=== PATIENT | female | born 1975 | race African-American/Black ===

== ENCOUNTER 2019-08-06 16:02 | Inpatient (IN) ==
[2019-08-06 16:57] LABS: BASO# 0.01 X1000 (0.0-0.2); BASO% 0.2 % (0.0-0.8); EOS# 0.09 X1000 (0.0-0.7); EOS% 1.7 % (0.0-10.0); HEMATOCRIT 39.5 % (37.0-47.0); HEMOGLOBIN 12.7 g/dL (12.0-16.0); IMM GRAN# 0.01 X1000 (0.0-0.04); IMM GRAN% 0.2 % (0.0-0.5); LYMPH# 1.78 X1000 (1.2-3.4); MCH 27.6 PG (27-31); MCHC 32.2 g/dL (33-37); MCV 85.9 FL (81-99); MONO# 0.39 X1000 (0.11-0.59); MONO% 7.2 % (1.7-9.3); MPV 11.5 FL (7.4-10.4); NEUT# 3.11 X1000 (1.4-6.5); NEUT% 57.7 % (42.2-75.2); PLT 287 X1000 (130-400); WBC 5.39 X1000 (4.8-10.8)
--- NOTE | 2019-08-06 17:10 | EKG Report ---
Test Performed on : 08/06/2019 4:49:53 PM Test Reason : SOB Blood Pressure : / mmHG Vent. Rate : 105 BPM Atrial Rate : 105 BPM P-R Int : 144 ms QRS Dur : 086 ms QT Int : 368 ms P-R-T Axes : 053 -19 047 degrees QTc Int : 486 ms Sinus tachycardia. Moderate voltage criteria for LVH, may be normal variant Borderline ECG No previous ECGs available Unconfirmed Result
[2019-08-06 17:12] LABS: ACETONE SERUM NEGATIVE (NEGATIVE)
[2019-08-06 17:17] LABS: AGAP 14; ALBUMIN 3.8 g/dL (3.5-5.0); ALKALINE PHOSPHATASE 174 U/L (32-104); BUN 8 mg/dL (8-22); CALCIUM 9.2 mg/dL (8.8-10.2); CHLORIDE 98 mmol/L (98-107); COSMO 283; CREATININE 0.6 mg/dL (0.5-0.9); ESTIMATED GFR > 60; GLUCOSE 358 mg/dL (70-104); GOT 40 U/L (10-30); GPT 41 U/L (10-36); POTASSIUM 4.3 mmol/L (3.5-5.1); SODIUM 135 mmol/L (136-145); TCO2 24 mmol/L (25-35); TOTAL PROTEIN 7.6 g/dL (6.3-8.3)
--- NOTE | 2019-08-06 17:32 | Diag Imaging Result Doc PS360 ---
EXAM: CHEST-2 VIEWS HISTORY: sob TECHNIQUE: Two views COMPARISON: None. FINDINGS: The lungs are well expanded. The heart is mildly enlarged. The vessels are not distended. There are increased interstitial markings in the lung bases. No pleural effusions. IMPRESSION: 1.Mild cardiomegaly 2.Basilar infiltrates Electronically signed by Jhonny Camp 08/06/2019 5:30 PM
[2019-08-06] MEDS ORDERED: NITROGLYCERIN TOP ONE ×2 (17:40→17:51)
[2019-08-06] MEDS ORDERED: CATAPRES PO ONE (17:51)
--- NOTE | 2019-08-06 18:50 | Diag Imaging Result Doc PS360 ---
EXAM: CT ANGIOGRM PULMONARY ARTERIES HISTORY: chest pain TECHNIQUE: CT chest with intravenous contrast. Pulmonary arterial protocol with MIP images. COMPARISON: None. FINDINGS: Normal opacification of the pulmonary arteries and their major branches. The heart is enlarged. Mild vascular distention. There are tiny pleural effusions. Mildly prominent mediastinal and hilar nodes. No consolidation. No bronchiectasis. IMPRESSION: 1.No pulmonary emboli 2.Cardiomegaly with tiny pleural effusions and mild pulmonary edema This exam was performed using automated exposure control, adjustment of mA or kV according to patient size, and/or use of iterative reconstruction technique. Electronically signed by Jhonny Camp 08/06/2019 6:48 PM
[2019-08-06] MEDS ORDERED: LASIX IV ONE (19:06)
--- NOTE | 2019-08-06 19:12 | PROVIDER DOCUMENTATION ---
This chart was entered by Maik Lott Scribe, acting as scribe for Scotty Martínez MD. HPI-General Adult - General Source: patient - History of Present Illness -Gen Adult Nature of Presenting Problems: 43 yof presents to the ed w/ SOB. pt states SOB while walking to work. pt states hx of HNT and DM w/ no meds in 2 months EMS states FSBA of 338. Location of Pain/Injury: reports: none Pain Radiation: reports: no radiation Quality of Pain: reports: none Severity: reports: mild Onset/Duration: reports: just prior to arrival Timing: reports: still present Context/Activities at Onset: reports: none Modifying Factors: improves with: nothing Associated Symptoms: reports: shortness of breath. denies: arm pain, back/neck pain, chest pain Similar Symptoms Previously?: No Recently seen or treated by another doctor?: No <Scotty Martínez - Last Filed: 08/06/19 19:12> <Marek Hoffman - Last Filed: 08/06/19 20:33> - General Chief Complaint: Shortness of Breath Stated Complaint: SOB Time Seen by Provider: 08/06/19 16:51 Allergies/Adverse Reactions: Patient Allergies Allergy/AdvReac Type Severity Reaction Status Date / Time No Known Allergies Allergy Verified 08/06/19 16:08 Home Medications: Home Medication List Medication Instructions Recorded Confirmed Last Taken Type NK [No Home Medications] 08/06/19 08/06/19 Unknown History Review of Systems - Adult - REVIEW OF SYSTEMS - ADULT Constitutional: reports: no symptoms reported Eyes: reports: no symptoms reported Ears, Nose, Mouth & Throat: reports: no symptoms reported Cardiovascular: reports: no symptoms reported Respiratory: reports: shortness of breath. denies: cough, wheezing Gastrointestinal: reports: no symptoms reported Genitourinary: reports: no symptoms reported Musculoskeletal: reports: no symptoms reported Integumentary: reports: no symptoms reported Neurological: reports: no symptoms reported Psychiatric: reports: no symptoms reported Endocrine: reports: no symptoms reported Hematologic/Lymphatic: reports: no symptoms reported Allergic/Immunologic: reports: no symptoms reported All Other Systems: Reviewed and Negative <Scotty Martínez - Last Filed: 08/06/19 19:12> Past History - Adult - PAST MEDICAL HISTORY-ADULT Review of Records: reports: Old Records Reviewed, Nursing Assessment Review, Medications Reviewed, Social history reviewed & non-contributory. Major Childhood Illnesses: reports: denies history Cardiovascular: reports: HTN Respiratory: reports: denies history Gastrointestinal: reports: denies history Obstetrical/Gynecological: reports: denies history Genitourinary: reports: denies history Musculoskeletal: reports: denies history Neurological: reports: denies history Psychiatric: reports: denies history Endocrine/Immune: reports: Diabetes Other Conditions: reports: denies history - PRIOR SURGERIES/PROCEDURES Surgical/Procedure History: reports: reviewed, not pertinent - IMMUNIZATION STATUS Childhood Immunizations: See Nurse Assessment Flu Vaccine: See Nurse Assessment - FAMILY HISTORY Family History: reviewed, not pertinent <Scotty Martínez - Last Filed: 08/06/19 19:12> Physical Exam-General - PHYSICAL EXAM-ADULT Initial Vital Signs Reviewed: Yes - CONSTITUTIONAL General Appearance: appears well, alert - CARDIOVASCULAR Cardiovascular: tachycardia (119) - CHEST (BREASTS) Chest/Breast: deferred - GENITOURINARY Female Genitalia/Pelvic Exam: deferred Rectal Exam: deferred Hemoccult Exam: deferred <Scotty Martínez - Last Filed: 08/06/19 19:12> Progress - PLAN OF CARE/RESULTS Progress/Plan/Lab Results: Vital Signs - 8 hr 08/06/19 16:05 Temperature 98.2 F Pulse Rate 119 H Respiratory Rate 20 Blood Pressure 216/141 O2 Sat by Pulse Oximetry 100 Orders Category Date Time Status CHEST-2 VIEWS [RAD] Stat Exams 08/06/19 16:35 Ordered ACETONE SERUM [CHEM] Stat Lab 08/06/19 16:48 Ordered CBC WITH ELECTRONIC DIFF [HEME] Stat Lab 08/06/19 16:48 Ordered CK PROFILE [SP CHEM] Stat Lab 08/06/19 16:35 Ordered COMPREHENSIVE METABOLIC PANEL [CHEM] Stat Lab 08/06/19 16:48 Ordered D-DIMER [COAG] Stat Lab 08/06/19 16:35 Ordered TROPONIN T HIGH SENSITIVITY Stat Lab 08/06/19 16:48 Ordered EKG [EKG] Stat Ther 08/06/19 16:35 Ordered Result Diagrams: 08/06/19 16:45 08/06/19 16:45 - EKG 1 Time of EKG reading by physician:: 16:49 EKG Read and Signed by:: Scotty Martínez EKG Interpretation (*Must complete 3 of following elements*): Normal Rate: 105 Rhythm: sinus tachycardia [place]: normal QRS: normal NV Interval: normal ST Wave: normal Comments: moderate voltage criteria for LVH, may be normal variant - XRAY 1 XRAY Study: Chest Impression: See EMR Report ( EXAM: CHEST-2 VIEWS HISTORY: sob TECHNIQUE: Two views COMPARISON: None. FINDINGS: The lungs are well expanded. The heart is mildly enlarged. The vessels are not distended. There are increased interstitial markings in the lung bases. No pleural effusions. IMPRESSION: 1.Mild cardiomegaly 2.Basilar infiltrates Electronically signed by Jhonny Camp 08/06/2019 5:30 PM 08/06/19 1730 Interpreting Physician: Jhonny Camp MD Dictated Date/Time: 08/06/19 1729 cc: Penny Lujan; None,PCP) - CHANGE OF SHIFT REPORT (ED Provider) 1 Report Given and Care Transferred to:: Dr. Marek Hoffman Items Pending: Other (reassess BP and if better then discharge, BP 228/150, given clonidine,Lasix, nitropaste) <Scotty Martínez - Last Filed: 08/06/19 19:12> - PLAN OF CARE/RESULTS Progress/Plan/Lab Results: Vital Signs - 8 hr 08/06/19 16:05 Temperature 98.2 F Pulse Rate 119 H Respiratory Rate 20 Blood Pressure 216/141 O2 Sat by Pulse Oximetry 100 Laboratory Results - last 24 hr 08/06/19 08/06/19 08/06/19 16:45 16:45 16:45 WBC RBC Hgb Hct MCV MCH MCHC RDW Std Deviation Plt Count MPV Immature Gran % (Auto) Neut % (Auto) Lymph % (Auto) [place] % (Auto) Eos % (Auto) Baso % (Auto) Immature Gran # (Auto) Neut # (Auto) Lymph # (Auto) [place] # (Auto) Eos # (Auto) Baso # (Auto) D-Dimer, Quantitative 2.06 H Sodium 135 L Potassium 4.3 Chloride 98 Carbon Dioxide 24 L Anion Gap 14 BUN 8 Creatinine 0.6 Estimated GFR/1.73 m2 > 60 BUN/Creatinine Ratio 13 Glucose 358 H POC Glucose Calculated Osmolality 283 Calcium 9.2 Total Bilirubin 0.30 AST 40 H ALT 41 H Alkaline Phosphatase 174 H Creatine Kinase 42 Troponin T High Sens Total Protein 7.6 Albumin 3.8 Globulin 4.0 Albumin/Globulin Ratio 1.0 Acetone Level NEGATIVE 08/06/19 08/06/19 08/06/19 16:45 16:45 16:45 WBC 5.39 RBC 4.60 Hgb 12.7 Hct 39.5 MCV 85.9 MCH 27.6 MCHC 32.2 L RDW Std Deviation 12.0 Plt Count 287 MPV 11.5 H Immature Gran % (Auto) 0.2 Neut % (Auto) 57.7 Lymph % (Auto) 33.0 Hanson % (Auto) 7.2 Eos % (Auto) 1.7 Baso % (Auto) 0.2 Immature Gran # (Auto) 0.01 Neut # (Auto) 3.11 Lymph # (Auto) 1.78 Hanson # (Auto) 0.39 Eos # (Auto) 0.09 Baso # (Auto) 0.01 D-Dimer, Quantitative Sodium Potassium Chloride Carbon Dioxide Anion Gap BUN Creatinine Estimated GFR/1.73 m2 BUN/Creatinine Ratio Glucose POC Glucose 292 H Calculated Osmolality Calcium Total Bilirubin AST ALT Alkaline Phosphatase Creatine Kinase Troponin T High Sens < 6 Total Protein Albumin Globulin Albumin/Globulin Ratio Acetone Level Orders Category Date Time Status CHEST-2 VIEWS [RAD] Stat Exams 08/06/19 16:[address] ANGIOGRM PULMONARY ARTERIES [CT] Stat Exams 08/06/19 17:53 Completed ACETONE SERUM [CHEM] Stat Lab 08/06/19 16:45 Completed CBC WITH ELECTRONIC DIFF [HEME] Stat Lab 08/06/19 16:45 Completed CK PROFILE [SP CHEM] Stat Lab 08/06/19 16:45 Completed COMPREHENSIVE METABOLIC PANEL [CHEM] Stat Lab 08/06/19 16:45 Completed D-DIMER [COAG] Stat Lab 08/06/19 16:45 Completed TROPONIN T HIGH SENSITIVITY Stat Lab 08/06/19 16:45 Completed Clonidine [Catapres] Med 08/06/19 17:51 Discontinued 0.2 mg PO NOW ONE Furosemide [Lasix] Med 08/06/19 19:06 Discontinued 40 mg IV NOW ONE Nitroglycerin Med 08/06/19 17:40 Discontinued 1 inch TOP NOW ONE Nitroglycerin Med 08/06/19 17:51 Discontinued 1 inch TOP NOW ONE EKG [EKG] Stat Ther 02/08/20 16:35 Draft Result Diagrams: 08/06/19 16:45 08/06/19 16:45 - REASSESSMENT Reassessment #1 Time Reassessed: 20:15 Status: unchanged Reassessment Comment: informed patient of test results which shows no PE, shows pulmonary edema - CONSULTS/PCP/HOSPITALIST Notification #1 *Consult/PCP/Hospitalist*: Dr. Cisneros Time Discussed: 20:15 Consult Disposition: Admit <Marek Hoffman - Last Filed: 08/06/19 20:33> Departure - Departure Date of Disposition Decision: 08/06/19 Certified Medical Emergency: Emergent - Critical Care Note This patient required my direct & personal management of CC.: No <Scotty Martínez - Last Filed: 08/06/19 19:12> - Departure Time of Disposition Decision: 20:32 Certified Medical Emergency: Emergent - Critical Care Note This patient required my direct & personal management of CC.: No <Marek Hoffman - Last Filed: 08/06/19 20:33> - Departure DIAGNOSIS: Uncontrolled hypertension Pulmonary edema Qualifiers: Chronicity: acute Qualified Code(s): J81.0 - Acute pulmonary edema Disposition: ADMITTED INPATIENT 09 Condition: Stable Referrals and Follow-Ups: None,PCP [Primary Care Provider] - Attestation - Physician/ MICKIE Attestation Patient care was provided by Advanced Practice Provider:: No The physician spent face to face time with patient:: Yes Advanced Practice Provider documentation review:: Supervising physician onsite and consulted in the evaluation and care of this patient. The physician did have a face to face encounter with the patient. <Scotty Martínez - Last Filed: 08/06/19 19:12> This chart was documented by the indicated scribe, (Maik Lott, Viniciusibdestiney) and accurately reflects the services I performed and decisions made by me, Scotty Martínez MD, as attested by the provider's signature.
[2019-08-06] MEDS ORDERED: CATAPRES PO PRN (20:36)
[2019-08-06] MEDS: LASIX IV SCH (20:45)
[2019-08-07] MEDS ORDERED: MOTRIN PO ONE (00:04)
[2019-08-07] MEDS: PRINIVIL PO SCH (09:31)
[2019-08-07] MEDS: GLUCOPHAGE PO SCH ×2 (09:31→18:15)
[2019-08-07] MEDS: LASIX IV SCH ×2 (09:32→21:17)
[2019-08-07] MEDS ORDERED: HUMALOG (PARKWAY) ONE (09:53)
[2019-08-07] MEDS: HUMALOG (PARKWAY) SUBQ SCH ×3 (10:02→21:16)
[2019-08-07 10:53] LABS: BASO# 0.01 X1000 (0.0-0.2); BASO% 0.2 % (0.0-0.8); EOS# 0.13 X1000 (0.0-0.7); HEMATOCRIT 36.5 % (37.0-47.0); HEMOGLOBIN 11.6 g/dL (12.0-16.0); LYMPH# 2.12 X1000 (1.2-3.4); LYMPH% 48.8 % (20.5-51.1); MCH 27.4 PG (27-31); MCHC 31.8 g/dL (33-37); MCV 86.3 FL (81-99); MONO# 0.33 X1000 (0.11-0.59); MONO% 7.6 % (1.7-9.3); MPV 11.8 FL (7.4-10.4); NEUT# 1.75 X1000 (1.4-6.5); NEUT% 40.4 % (42.2-75.2); PLT 275 X1000 (130-400); RBC 4.23 XMIL (4.2-5.4); RDW 11.9 % (11.5-14.5); WBC 4.34 X1000 (4.8-10.8)
[2019-08-07 11:06] LABS: HEMOGLOBIN A1C 9.9 % (4.8-6.0)
--- NOTE | 2019-08-07 11:19 | Vascular Study Report ---
EXAM: Venous U/S Bilateral Legs 08/07/2019 HISTORY: ELEVATED DDIMER, DYSPNEA TECHNIQUE: Compression venous ultrasound of the lower extremities with color Doppler flow COMMENT: There is compressibility of the deep veins of both lower extremities with no evidence of thrombus. There is no evidence of superficial venous thrombosis. There is color Doppler flow with augmentation and some reflux is seen in the right femoral vein. IMPRESSION: No evidence of deep venous thrombosis. 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 Electronically signed by Mayank Chavis 08/07/2019 11:16 AM
[2019-08-07 11:48] LABS: AGAP 14; ALBUMIN 3.5 g/dL (3.5-5.0); ALKALINE PHOSPHATASE 137 U/L (32-104); BUN 14 mg/dL (8-22); CALCIUM 9.2 mg/dL (8.8-10.2); CHLORIDE 98 mmol/L (98-107); COSMO 286; CREATININE 0.7 mg/dL (0.5-0.9); ESTIMATED GFR > 60; GLUCOSE 308 mg/dL (70-104); GOT 18 U/L (10-30); GPT 27 U/L (10-36); MAGNESIUM 1.6 mg/dL (1.5-2.7); POTASSIUM 3.8 mmol/L (3.5-5.1); SODIUM 137 mmol/L (136-145); TCO2 25 mmol/L (25-35); TOTAL PROTEIN 7.3 g/dL (6.3-8.3)
--- NOTE | 2019-08-07 14:20 | HISTORY AND PHYSICAL ---
CHIEF COMPLAINT: Shortness of breath. HISTORY OF PRESENT ILLNESS: This is a 43-year-old female with a history of diabetes and hypertension. She presented to the emergency room after becoming short of breath while walking through the parking lot going to work. She denied any prior episodes of shortness of breath, any fevers, chills, any dizziness, any chest pain or palpitations. The patient states that she has not taken her medications for her blood pressure or diabetes in the last 2 months because "I just ran out of it." She did not attempt to get an appointment with a physician to get prescriptions written. PAST MEDICAL HISTORY: 1. Diabetes mellitus. 2. Hypertension. PAST SURGICAL HISTORY: Denies. ALLERGIES: No known drug allergies. SOCIAL HISTORY: She denies alcohol, tobacco, or illicit drug use.Family history: Positive for hypertension, diabetes in first-degree relatives. REVIEW OF SYSTEMS: Discussed with the patient with pertinent positives stated in the HPI. She denied any syncope, dizziness, any chest pain or palpitations, a productive cough, any fevers or chills, any nasal drainage, any nausea, vomiting, diarrhea, constipation, black or bloody vomitus or stools. Hematuria, dysuria, frequency, urgency. PHYSICAL EXAMINATION: GENERAL: This is a 43-year-old female who is lying on the stretcher in the emergency room in no distress. VITAL SIGNS: Blood pressure is 146/80, heart rate of 73, respirations are 18, temperature is 98.2 degrees with room air saturations 95 to 99 percent. EYES: Pupils equal, round, react to light. EOMs are intact. Sclerae are anicteric. HEENT: Head is normocephalic, atraumatic. Mucous membranes are moist. NECK: Supple with trachea midline. No JVD. CARDIOVASCULAR: Regular rate and rhythm. S1 and S2 appreciated. No murmur. She has no lower extremity edema. Calves are nontender bilateral with peripheral pulses palpable x4 extremities. PULMONARY: Breath sounds are clear with no increased work of breathing noted. Chest rises and falls symmetric with respiration. Chest wall is nontender to palpation. GASTROINTESTINAL: Abdomen is soft, nontender, nondistended with bowel sounds in all 4 quadrants. GENITOURINARY: No CVA or suprapubic tenderness. NEUROLOGIC: She is alert and oriented x3. SKIN: Warm and dry. LABS: WBC is 5.3 with hemoglobin 12.7, hematocrit 39.5, and platelets of 287,000. D-dimer is 2.06. Sodium 135, potassium 4.3, BUN 8, creatinine 0.6 with a glucose of 358, AST 40, ALT 41, alkaline phosphatase 174. Her proBNP is 3600. Acetone is negative. EKG: Sinus tachycardia at a rate of 105. Chest x-ray revealed mild cardiomegaly with basilar infiltrates. No pleural effusions. Pulmonary arteriogram reveals no pulmonary emboli, cardiomegaly with tiny pleural effusions and mild pulmonary edema. ASSESSMENT AND PLAN: 1. Shortness of breath. This is resolved. O2 saturations have been 95 to 100 percent on room air. 2. Elevated D-dimer, CTA pulmonary was negative for pulmonary embolus. We will get a lower extremity Doppler. 3. Diabetes mellitus with noncompliance. The patient cannot remember if she was taking insulin or not. She does not remember what medication she was on. We will start metformin 500 mg [address]., place her on pattern blood glucose with sliding scale insulin. 4. Hypertension. The patient cannot remember what she has been prescribed in the past for hypertension, nor if she took the pill once or twice a day. We will start lisinopril and monitor vital signs. 5. Elevated liver function tests. We will repeat labs and monitor. Abdomen is soft and nontender. She denies any prior history of elevation. 6. Elevated proBNP. She was given Lasix in the emergency room. She did not catch urine for us to get intake and output. We will obtain an echocardiogram and continue with diuresis. 7. Plan was discussed with Dr. Cisneros. Further treatments pending hospital course. Dictated by ILEANA Cerna for Zaki Cisneros MD cc: ILEANA Cerna MD
--- NOTE | 2019-08-07 16:38 | ECHO REPORT ---
ORDER DATE: 08/07/2019 ECHOCARDIOGRAPHIC MEASUREMENTS: 1. Interventricular septum 1.2. 2. Left ventricular posterior wall 1.0. 3. Diastolic diameter 5. 4. Left atrium 4.7. 5. Aorta 3.7. 6. Tricuspid valve was normal. 7. Aortic valve leaflets were trileaflet. 8. Pulmonic valve was normal. 9. Mitral valve was normal. 10. There is trace tricuspid regurgitation. Peak velocity across the tricuspid valve was 2.5 m/sec. 11. Mild mitral regurgitation. 12. Peak velocity across the aortic valve less than 2 m/sec. There is no aortic stenosis or regurgitation. 13. Normal left ventricular cavity size. Estimated ejection fraction of 50% to 55%. 14. Endocardium not well visualized in all views. 15. There is no pericardial effusion or obvious intracardiac mass or thrombus seen. cc: MD Kylah Pang CRNP
--- NOTE | 2019-08-08 00:45 | HISTORY AND PHYSICAL ---
ADDENDUM: Patient presented to the hospital with increased work of breathing, shortness of breath. Does have a history of hypertension and diabetes. Blood pressures were markedly elevated initially at 216/140, currently 140/80. She appears to have pneumonia as well as uncontrolled hypertension. We are going to place her on antibiotics, breathing treatments, oxygen, and follow her blood pressures. Further orders as needed. cc: Zaki Cisneros MD
[2019-08-08] MEDS: HUMALOG (PARKWAY) SUBQ SCH ×2 (06:04→06:27)
[2019-08-08 07:38] VITALS: BP 140/63
[2019-08-08] MEDS: LASIX IV SCH (10:18)
[2019-08-08] MEDS: GLUCOPHAGE PO SCH (10:18)
[2019-08-08] MEDS: PRINIVIL PO SCH (10:18)
--- NOTE | 2019-08-08 20:08 | PROGRESS NOTE ---
DATE: 08/08/2019 SUBJECTIVE: Patient notes that she is feeling a lot better. She has had no further shortness of breath. Breathing is improved. We are going to discharge her home. Discussed with her that her A1c is 9.9 and certainly needs to be improved at home. She will continue to change her diet and we will adjust her medications. Please see full note. cc: Zaki Cisneros MD
--- NOTE | 2019-08-09 09:44 | DISCHARGE SUMMARY ---
ADMISSION DATE: 08/06/2019 DISCHARGE DATE: 08/08/2019 ADMISSION AND DISCHARGE DIAGNOSES: 1. Shortness of breath, which resolved. 2. Elevated D-dimer. CTA of the lungs is negative for PE. The venous ultrasound of the lower extremities negative for DVT, however, did show a venous valvular incompetence in the right femoral vein. 3. Diabetes mellitus type 2 with noncompliance. 4. Hypertension. 5. Elevated liver enzymes. 6. Elevated proBNP. 7. Pneumonia. 8. Uncontrolled hypertension. CONSULTATIONS: None. SURGERIES AND PROCEDURES: None. HOSPITAL COURSE: Ms. Ana Jules is a 43-year-old female presented to the emergency department at [facility] with complaints of shortness of breath on the 06 of August. She was fully admitted on the , was found to have pneumonia, started on antibiotics, respiratory treatments and oxygen as needed. However, her O2 saturations were stable on room air. She is very hypertensive. It was 216/140 when she 1st presented, which eventually resolved once medications were resumed. However, there is a concern that she has some noncompliance with her medication regimen. The D- dimer was elevated. She did not have a PE. An echo was performed. She had normal ejection fraction and she was also negative for DVT in the lower extremities. She stabilized and was able to be discharged home today. DISCHARGE VITAL SIGNS: Temperature 97.8 degrees, heart rate 86, respiratory 20, blood pressure 140/63, O2 saturation 100% on room air. Discharge. DISCHARGE LAB DATA: White blood cells 4000, hemoglobin 11, hematocrit 36, platelet count 275,000. Her D-dimer was 2.06 on admission. Sodium 137, potassium 3.8, BUN 14, creatinine 0.7, glucose 162. Hemoglobin A1c was 9.9, calcium 9.2, magnesium 1.6, bilirubin 0.20, AST 18, ALT 27. She did have a proBNP of 3600. Albumin was 3.5. Micro none. IMAGING: On the chest x-ray, mild cardiomegaly, basilar infiltrate on the . Pulmonary arteriogram, no pulmonary emboli. It showed cardiomegaly with tiny pleural effusions and mild pulmonary edema. On the bilateral lower extremity venous ultrasound negative for DVT, did show venous valvular incompetence in the right femoral vein. Echocardiogram on the , valves normal. Trace TR, mild MR, normal LV size and ejection fraction of 50 to 55 percent. EKG on the 8th, sinus tachycardia, rate 105, QTc was 486. DISCHARGE MEDICATIONS: 1. Metformin 500 mg p.o. twice daily. 2. Lisinopril 20 mg p.o. daily. DISCHARGE ACTIVITY: As tolerated. DISCHARGE DIET: Heart healthy diabetic. DISCHARGE INSTRUCTIONS: If her condition changes, contact physician and/or return to the emergency department. Changes may include, but not limited to shortness of breath, increased fatigue, excessive bleeding, unexplained weight loss or gain, unmanageable pain, signs or symptoms of infection. PHYSICIAN FOLLOWUP: She will need to find a primary and follow up with a primary. DISCHARGE DISPOSITION: Home. Dictated by ILEANA Serra for Zaki Cisneros MD cc: ILEANA Serra MD
== END 2019-08-08 13:23 | disposition home or self-care (01) | DRG 304 ==
LOC: P.ED 16:02 → P.EDIPHOLD 08-07 00:28 → P.MEDSURG 08-07 11:02
PROVIDERS: ATTEND Family Medicine

== ENCOUNTER 2019-10-04 19:49 | Inpatient (IN) ==
[2019-10-04] MEDS ORDERED: LOPRESSOR IV ONE (20:36)
[2019-10-04 20:49] LABS: BASO# 0.02 X1000 (0.0-0.2); BASO% 0.3 % (0.0-0.8); EOS# 0.01 X1000 (0.0-0.7); EOS% 0.1 % (0.0-10.0); HEMATOCRIT 34.7 % (37.0-47.0); MCH 25.9 PG (27-31); MCHC 31.7 g/dL (33-37); MCV 81.6 FL (81-99); MONO# 0.51 X1000 (0.11-0.59); MONO% 7.6 % (1.7-9.3); MPV 11.6 FL (7.4-10.4); NEUT# 4.73 X1000 (1.4-6.5); PLT 345 X1000 (130-400); RBC 4.25 XMIL (4.2-5.4); RDW 13.5 % (11.5-14.5); WBC 6.67 X1000 (4.8-10.8)
[2019-10-04 20:58] LABS: INR 1.14; PROTIME 14.8 Seconds (11.0-16.0); PTT 26.7 Seconds (22.3-41.8)
--- NOTE | 2019-10-04 21:10 | EKG Report ---
Test Performed on : 10/04/2019 8:22:23 PM Test Reason : tachycardia Blood Pressure : / mmHG Vent. Rate : 146 BPM Atrial Rate : 146 BPM P-R Int : 138 ms QRS Dur : 086 ms QT Int : 306 ms P-R-T Axes : 033 -11 057 degrees QTc Int : 476 ms Sinus tachycardia. with frequent and consecutive premature ventricular complexes. Minimal voltage criteria for LVH, may be normal variant Abnormal ECG When compared with ECG of 06-AUG-2019 16:49, (Unconfirmed) premature ventricular complexes. are now present Unconfirmed Result
[2019-10-04 21:12] LABS: AGAP 16; ALBUMIN 3.3 g/dL (3.5-5.0); ALKALINE PHOSPHATASE 513 U/L (32-104); BUN 10 mg/dL (8-22); CALCIUM 8.8 mg/dL (8.8-10.2); CHLORIDE 93 mmol/L (98-107); CK PROFILE 34 U/L (24-173); COSMO 279; CREATININE 0.7 mg/dL (0.5-0.9); ESTIMATED GFR > 60; GLUCOSE 380 mg/dL (70-104); GOT 29 U/L (10-30); GPT 20 U/L (10-36); POTASSIUM 4.6 mmol/L (3.5-5.1); SODIUM 132 mmol/L (136-145); TCO2 23 mmol/L (25-35); TOTAL PROTEIN 6.6 g/dL (6.3-8.3)
--- NOTE | 2019-10-04 21:35 | Diag Imaging Result Doc PS360 ---
EXAM: CHEST-PORTABLE HISTORY: dyspnea TECHNIQUE: Single view COMPARISON: 08/06/2019 FINDINGS: Poor inspiratory effort. The heart is enlarged. Mild pulmonary edema. Questionable tiny pleural effusions. IMPRESSION: Cardiomegaly with pulmonary edema Electronically signed by Jhonny Camp 10/04/2019 9:32 PM
[2019-10-04] MEDS ORDERED: LASIX IV ONE (22:07)
--- NOTE | 2019-10-04 22:17 | PROVIDER DOCUMENTATION ---
This chart was entered by Tiffanie Alanis Scribe, acting as scribe for Aleisha Vickers CRNP. HPI-General Adult - General Chief Complaint: Shortness of Breath Stated Complaint: sob, nausea/vomiting Time Seen by Provider: 10/04/19 20:04 Source: patient Allergies/Adverse Reactions: Patient Allergies Allergy/AdvReac Type Severity Reaction Status Date / Time No Known Allergies Allergy Verified 10/04/19 20:41 Home Medications: Home Medication List Medication Instructions Recorded Confirmed Last Taken Type Metformin [Glucophage] 500 mg PO BID CC #60 tab 08/08/19 10/04/19 Unknown Rx - History of Present Illness -Gen Adult Nature of Presenting Problems: Pt is a 44 yobf presenting in ED with c/o SOB, body aches in legs and arms, and N/V. Pt reports that she has had worsening SOB for the last week and worsening bilateral leg edema for the last month. Pt says that she has difficulty laying down flat. Pt states that she went to the [facility] Thursday and was given HTN medication by Emmy, which pt says she did not fill. Pt reports that she feels nauseous and vomited 1x today, pt report that vomit was red in color but pt also states that she had just drank red Koolaid. Pt has a hx of HTN, diabetes and renal disease and takes metformin for diabetes. Pt is alert and flushed in appearance. Location of Pain/Injury: reports: lower extremity (bilateral leg), generalized (pt reports that body feels tight) Quality of Pain: reports: aching, tightness Severity: reports: moderate Onset/Duration: reports: gradual, last week (pt states that SOB has been getting worse for last week), other (pt states that pedal edema has been worsening for last month) Timing: reports: still present, constant, getting worse Context/Activities at Onset: reports: light activity. denies: out of country travel Modifying Factors: worse with: lying down, movement Associated Symptoms: reports: muscle aches (generalized), nausea, shortness of b reath, vomiting (1 x today). denies: chest pain, cough, fever/chills Similar Symptoms Previously?: Yes (pt reports symptoms for over 1 week) Recently seen or treated by another doctor?: Yes (Thursday at [facility]) Review of Systems - Adult - REVIEW OF SYSTEMS - ADULT Constitutional: denies: chills, fever Eyes: reports: no symptoms reported Ears, Nose, Mouth & Throat: reports: no symptoms reported Cardiovascular: denies: chest pain, syncope Respiratory: reports: see HPI, shortness of breath. denies: cough Gastrointestinal: reports: see HPI, nausea, vomiting. denies: abdominal pain Genitourinary: reports: no symptoms reported Musculoskeletal: reports: see HPI, muscle aches (generalized) Integumentary: reports: no symptoms reported Neurological: reports: no symptoms reported Psychiatric: reports: no symptoms reported Endocrine: reports: no symptoms reported Hematologic/Lymphatic: reports: no symptoms reported Allergic/Immunologic: reports: no symptoms reported All Other Systems: Reviewed and Negative Past History - Adult - PAST MEDICAL HISTORY-ADULT Review of Records: reports: Old Records Reviewed, Nursing Assessment Review, Medications Reviewed, Social history reviewed & non-contributory. Major Childhood Illnesses: reports: denies history Cardiovascular: reports: HTN Respiratory: reports: denies history Gastrointestinal: reports: denies history Obstetrical/Gynecological: reports: denies history Genitourinary: reports: dialysis, kidney disease Musculoskeletal: reports: denies history Neurological: reports: denies history Psychiatric: reports: denies history Endocrine/Immune: reports: Diabetes Other Conditions: reports: denies history - PRIOR SURGERIES/PROCEDURES Surgical/Procedure History: reports: reviewed, not pertinent - IMMUNIZATION STATUS Childhood Immunizations: See Nurse Assessment Flu Vaccine: See Nurse Assessment - FAMILY HISTORY Family History: reviewed, not pertinent - SOCIAL HISTORY Smoking: quit less than 1 year Living Situation: alone Physical Exam-General - PHYSICAL EXAM-ADULT Initial Vital Signs Reviewed: Yes (HR 129) - CONSTITUTIONAL General Appearance: alert, mild distress, obese - EYES Eyes: PERRL/EOMI, pink conjunctivae - HEAD, EARS, NOSE, MOUTH & THROAT HENMT: normocephalic/atraumatic, moist mucous membranes - NECK Neck: non-tender, full range of motion, supple - RESPIRATORY Respiratory: chest non-tender, rhonchi (bilateral). negative: crackles, wheezing - CARDIOVASCULAR Cardiovascular: normal peripheral pulses, tachycardia - GASTROINTESTINAL (ABDOMEN) Abdominal Exam: non tender, soft - MUSCULOSKELETAL Back Exam: normal inspection, no CVA tenderness, no vertebral tenderness Extremity: normal range of motion, normal gait (Pt moved onto ED bed by herself) , pedal edema (bilateral Lower leg) - SKIN Integumentary: warm/dry, other (flushed) - NEUROLOGIC Neurologic: grossly normal - PSYCHIATRIC Psych/Mental Status: normal thought content, normal thought process, oriented x 3, anxious Progress - PLAN OF CARE/RESULTS Progress/Plan/Lab Results: Vital Signs - 8 hr 10/04/19 19:49 Temperature 99.2 F Pulse Rate 129 H Respiratory Rate 21 Blood Pressure 212/72 O2 Sat by Pulse Oximetry 96 Orders Category Date Time Status NEWS Score 2-4:Order NEWS Lactate Series NOW Care 10/04/19 19:58 Active Nursing- Obtain EKG ONCE Care 10/04/19 20:36 Active CHEST-PORTABLE [RAD] Stat Exams 10/04/19 20:31 Ordered CBC WITH DIFF [HEME] Stat Lab 10/04/19 20:40 Ordered CK PROFILE [SP CHEM] Stat Lab 10/04/19 20:40 Ordered COMPREHENSIVE METABOLIC PANEL [CHEM] Stat Lab 10/04/19 20:40 Ordered D-DIMER [COAG] Stat Lab 10/04/19 20:40 Ordered LACTATE, PLASMA [CHEM] Lab 10/04/19 23:00 Uncollected LACTATE, PLASMA [CHEM] Lab 10/05/19 02:00 Uncollected LACTATE, PLASMA [CHEM] Q3H Lab 10/04/19 20:40 Ordered PRO B-NATRIURETIC PEPTIDE Stat Lab 10/04/19 20:40 Ordered PROTIME WITH INR [COAG] Stat Lab 10/04/19 20:40 Ordered PTT [COAG] Stat Lab 10/04/19 20:40 Ordered TROPONIN T HIGH SENSITIVITY Stat Lab 10/04/19 20:40 Ordered Metoprolol [Lopressor] Med 10/04/19 20:36 Discontinued 5 mg IV NOW ONE EKG [EKG] Stat Ther 10/04/19 20:36 Ordered Result Diagrams: 10/04/19 20:30 10/04/19 20:30 - EKG 1 Time of EKG reading by physician:: 20:24 EKG Read and Signed by:: Olga Shields EKG Interpretation (*Must complete 3 of following elements*): Abnormal Rate: 146 Rhythm: Sinus tachycardia w/frequent & consecutive premature ventricular complexes QRS: LVH (minimal voltage criteria, may be normal variant) - XRAY 1 XRAY Study: Chest Impression: See EMR Report (FINDINGS: Poor inspiratory effort. The heart is enlarged. Mild pulmonary edema. Questionable tiny pleural effusions. IMPRESSION: Cardiomegaly with pulmonary edema Electronically signed by Jhonny Camp 10/04/2019 9:32 PM) - CONSULTS/PCP/HOSPITALIST Notification #1 *Consult/PCP/Hospitalist*: Dr. Sanchez Time Discussed: 22:16 Consult Disposition: Admit Departure - Departure Date of Disposition Decision: 10/04/19 Time of Disposition Decision: 22:16 DIAGNOSIS: Transaminitis, Uncontrolled hypertension CHF exacerbation Qualifiers: Heart failure type: unspecified Qualified Code(s): I50.9 - Heart failure, unspecified Disposition: ADMITTED INPATIENT 09 Certified Medical Emergency: Emergent Condition: Poor - Critical Care Note This patient required my direct & personal management of CC.: Yes Total Time (mins): 30 Critical Care Statement: This patient required my direct personal management to treat or rule out processes, the absence of which, could potentiallly result in sudden, clinically significant life or limb threatening deterioration. Attestation - Physician/ MICKIE Attestation Patient care was provided by Advanced Practice Provider:: Yes Advanced Practice Provider:: Aleisha Vickers Advanced Practice Provider documentation review:: The Mid-level provider documentation, treatment plan and medical decision making was reviewed by the physician who agrees with all treatment and medical decision making by the MLP. The physician spent face to face time with patient:: No Advanced Practice Provider documentation review:: Supervising physician onsite and consulted in the evaluation and care of this patient. The physician did not have a face to face encounter with the patient. This chart was documented by the indicated scribe, (Tiffanie Alanis, Taryn) and accurately reflects the services I performed and decisions made by me, Aleisha Vickers CRNP, as attested by the provider's signature.
[2019-10-05] MEDS: LASIX IV SCH ×3 (00:29→23:16)
[2019-10-05] MEDS: HUMALOG SUBQ SCH ×5 (00:44→21:04)
[2019-10-05] MEDS ORDERED: LASIX IV ONE (06:04)
[2019-10-05] MEDS ORDERED: NICODERM PATCH TD PRN (06:56)
--- NOTE | 2019-10-05 07:15 | HISTORY AND PHYSICAL ---
CHIEF COMPLAINT: Shortness of breath for about 2 weeks. HISTORY OF PRESENT ILLNESS: Ms. Ana Jules is a 44-year-old female, who has a history of congestive heart failure, hypertension, diabetes mellitus, who presents to the hospital because of shortness of breath which has been ongoing for the last 2 weeks and has been progressive. She also has associated orthopnea and also leg swelling. The patient has not been compliant with her diuretics. When she presented to the hospital, her proBNP level was found to be 4842, and a chest x-ray did show cardiomegaly with pulmonary edema. Patient now admitted to the floor for further management. PAST MEDICAL HISTORY: Hypertension, diabetes mellitus, as well as congestive heart failure. SOCIAL HISTORY: Patient has a history of cigarette smoking. She indicates that she has quit smoking about 2 weeks ago. No alcohol or drug use. ALLERGIES: No known drug allergies. PAST SURGICAL HISTORY: She has had section, as well as right carpal tunnel surgery. FAMILY HISTORY: Positive for diabetes mellitus. MEDICATIONS: She takes metformin 500 mg p.o. twice a day. REVIEW OF SYSTEMS: Constitutional: No fever. 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 Eyes: No blurred vision. ENT: No sinus or hearing loss. Cardiovascular: See history of present illness. Respiratory: No cough. GI: She had some vomiting. No abdominal pain. : No dysuria. Dermatology: No skin lesions. Hematology: No bleeding problems. Endocrinology: Has diabetes. No thyroid disease. Psychiatric: She has depression. Allergy/Immunology: No symptoms suggestive of allergic rhinitis. X-RAYS: Chest x-ray shows evidence of cardiomegaly with pulmonary congestion. PHYSICAL EXAMINATION. VITALS.T98.2, RR 20, GA 95, BP -177/89, O2 sat. 99% HEENT. at.nc, anicteric, no oral lesions noted NECK. no lymphadenopathy or thyromegaly. no jvd CVS. s1s2, no gallops , rubs or murmur RESP.clear to auscultation, no rales or rhonchi ABD. soft, nt, no masses felt. EXT. 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 Acute diastolic congestive heart failure. Maintain patient on diuretics. Monitor intake and output, as well as daily weights. 2. Hypertension. Optimize blood pressure control. 3. Diabetes mellitus. Maintain patient on sliding scale insulin. Monitor blood sugar levels. Check hemoglobin A1c level. 4. Elevated D-dimer level. We will obtain CT of the chest. If negative, will obtain Doppler of the lower extremities. 5. Elevated alkaline phosphatase level. Obtain abdominal ultrasound. 6. Tobacco use history. Recommend nicotine patch. 7. Deep vein thrombosis prophylaxis. Lovenox. 8. Gastrointestinal prophylaxis. Proton pump inhibitor. cc: Randy Sanchez MD MTDZak
[2019-10-05] MEDS: PRILOSEC PO SCH (07:16)
[2019-10-05 07:21] LABS: HEMOGLOBIN A1C 9.5 % (4.8-6.0)
--- NOTE | 2019-10-05 07:52 | EKG Report ---
Test Performed on : 10/05/2019 07:18:30 AM Test Reason : afib Blood Pressure : / mmHG Vent. Rate : 107 BPM Atrial Rate : 107 BPM P-R Int : 146 ms QRS Dur : 088 ms QT Int : 360 ms P-R-T Axes : 058 -01 081 degrees QTc Int : 480 ms Sinus tachycardia. with occasional premature ventricular complexes. Nonspecific T wave abnormality Abnormal ECG When compared with ECG of 04-OCT-2019 20:22, (Unconfirmed) Nonspecific T wave abnormality, worse in Lateral leads Confirmed by Will MOLINA, Fernando Beverly ([id number]) on 10/05/2019 9:58:12 AM
--- NOTE | 2019-10-05 08:57 | Diag Imaging Result Doc PS360 ---
EXAM: US ABDOMEN-COMPLETE INDICATION: elevated alk . phosphatase COMPARISON: None. FINDINGS: The gallbladder appears normal with no stones, wall thickening, or pericholecystic fluid. The common bile duct is normal in diameter. Sonographic Norwood's sign was reported to be negative. There is a trace amount of fluid tracking around the liver. The liver is grossly normal in size and echotexture. Portal venous flow is hepatopetal. The visualized portion of the pancreas is unremarkable. The aorta and IVC are grossly unremarkable. The spleen is unremarkable. There is a 1.7 cm simple appearing cyst at the upper pole of the left kidney. The kidneys are grossly unremarkable, otherwise. IMPRESSION: Trace fluid tracking around the liver. Essentially unremarkable abdominal ultrasound, otherwise. Electronically signed by Allan Platt 10/05/2019 8:54 AM
[2019-10-05] MEDS ORDERED: LOVENOX SUBQ SCH (09:00)
--- NOTE | 2019-10-05 09:10 | Diag Imaging Result Doc PS360 ---
EXAM: CT ANGIOGRM PULMONARY ARTERIES INDICATION: elevated d- dimer TECHNIQUE: This exam was performed using automated exposure control, adjustment of mA or kV according to patient size, and/or use of iterative reconstruction technique. Thin section axial images and 3-D MIPS were obtained. COMPARISON: 08/06/2019 FINDINGS: There is no evidence of pulmonary embolism. There is no evidence of aortic dissection or aneurysm. There is stable mild cardiomegaly. There is no evidence of significant mediastinal or hilar lymphadenopathy. There is mild groundglass opacity and interstitial thickening at the lung bases suggesting mild edema. There is mild subsegmental atelectasis at both lung bases, most prominent at the right middle lobe. There is a small right pleural effusion that is essentially stable as compared to the previous study. There is no evidence of pneumothorax. Limited views of the upper abdomen are essentially unremarkable. There is thoracic spondylosis. There is no evidence of acute osseous abnormality. IMPRESSION: 1.Mild pulmonary edema at the lung bases and a small right effusion. 2.Subsegmental atelectasis at both lung bases. 3.Stable mild cardiomegaly. 4.No evidence of pulmonary embolism. Electronically signed by Allan Platt 10/05/2019 9:08 AM
[2019-10-05] MEDS: PRINIVIL PO SCH ×2 (09:36→20:58)
[2019-10-05] MEDS: COREG PO SCH ×2 (09:37→20:58)
--- NOTE | 2019-10-05 13:28 | PROGRESS NOTE ---
DATE: 10/05/2019 SUBJECTIVE: Patient reports feeling okay. Denies any fever or chills. OBJECTIVE: Vital Signs: Temperature 98.5 degrees, heart rate 105, respiratory rate 17, blood pressure 186/84, O2 saturation 97% 2 L nasal cannula. General examination: This is a 44-year- old, female, lying in bed in no acute distress. Cardiovascular exam: S1, S2 heard. No murmurs, gallops, or rubs. Regular rate and rhythm. Respiratory exam: Minimal crackles noted in both pulmonary bases. Patient not using any accessory muscles or having work of breathing. Abdomen: Soft, nontender to palpation. Bowel sounds present. No organomegaly. Extremities: No clubbing, cyanosis, or edema. Peripheral pulses present in both legs. Neurological exam: Patient alert and oriented x3. Moves 4 extremities. LABORATORY DATA: There are no labs from today. ASSESSMENT AND PLAN: 1. Acute diastolic congestive heart failure. We will continue with Lasix 40 mg intravenous every 12 hours. We will continue monitoring ins and outs. 2. Hypertension. Apparently, the patient is not on any blood pressure medication, so the patient has been started on lisinopril 10 mg 1 tablet oral twice daily, and we will add amlodipine 5 mg one tablet oral twice daily as well to her current treatment. 3. Diabetes mellitus type 2. Hemoglobin A1c is very elevated. Considering that her blood sugars are over 300, I prefer to go ahead and start Lantus 10 mg subcutaneous twice daily and will continue with sliding scale insulin high levels. 4. Deep venous thrombosis prophylaxis. We will continue with Lovenox. 5. Gastrointestinal prophylaxis. We will continue with Protonix. cc: Hermilo Hussein MD
[2019-10-05] MEDS: NORVASC PO SCH ×2 (14:40→20:58)
[2019-10-05] MEDS: LANTUS INSULIN SUBQ SCH ×2 (14:40→20:58)
[2019-10-05] MEDS ORDERED: ZOFRAN ODT PO PRN (23:02)
[2019-10-05] MEDS: NORCO-5 PO PRN (23:16)
[2019-10-06 01:47] LABS: ALLEN TEST YES; BE 7.5 mmoll (-3.0-3.0); BLOOD TYPE ARTERIAL; HCO3-(ACT) 30.7 mmoll (20.0-26.0); METHB 1.2 % (0.0-1.5); O2HB 94.8 % (95.0-99.0); PCO2(98.6) 39 mmHg (35-45); PO2(98.6) 75 mmHg (60-100); SAMPLE BLOOD; THB 11.2 g/dL (11.5-17.4); pH(98.6) 7.51 (7.35-7.45)
[2019-10-06] MEDS ORDERED: CARDIZEM IV ONE (01:47)
[2019-10-06 01:50] LABS: MODALITY ROOM AIR
[2019-10-06] MEDS ORDERED: CARDIZEM 100 MG/NS 100 MG/100 ML IVPB IV SCH (02:00)
[2019-10-06] MEDS: LOVENOX SUBQ SCH ×2 (02:21→14:48)
[2019-10-06 02:28] LABS: AGAP 14; BUN 14 mg/dL (8-22); CALCIUM 9.5 mg/dL (8.8-10.2); CHLORIDE 96 mmol/L (98-107); CK PROFILE 26 U/L (24-173); COSMO 276; CREATININE 0.7 mg/dL (0.5-0.9); ESTIMATED GFR > 60; GLUCOSE 137 mg/dL (70-104); MAGNESIUM 1.7 mg/dL (1.5-2.7); SODIUM 137 mmol/L (136-145); TCO2 27 mmol/L (25-35)
[2019-10-06] MEDS: PRILOSEC PO SCH (06:28)
[2019-10-06] MEDS: HUMALOG SUBQ SCH ×4 (06:28→20:33)
--- NOTE | 2019-10-06 07:13 | Diag Imaging Result Doc PS360 ---
EXAM: CHEST-PORTABLE HISTORY: SOB TECHNIQUE: Single view COMPARISON: 10/04/2019 FINDINGS: The lungs are well expanded. The heart is enlarged. Mild central vascular prominence. There are no infiltrates. No effusion identified. IMPRESSION: Interval improvement. Electronically signed by Jhonny Camp 10/06/2019 7:11 AM
[2019-10-06] MEDS: NORVASC PO SCH (09:04)
[2019-10-06] MEDS: LANTUS INSULIN SUBQ SCH ×2 (09:04→20:33)
[2019-10-06] MEDS: PRINIVIL PO SCH ×2 (09:04→20:32)
[2019-10-06] MEDS: COREG PO SCH ×2 (09:04→20:32)
[2019-10-06 09:05] LABS: BASO# 0.05 X1000 (0.0-0.2); BASO% 0.8 % (0.0-0.8); EOS# 0.11 X1000 (0.0-0.7); EOS% 1.8 % (0.0-10.0); HEMATOCRIT 35.8 % (37.0-47.0); HEMOGLOBIN 11.5 g/dL (12.0-16.0); LYMPH# 3.32 X1000 (1.2-3.4); LYMPH% 54.3 % (20.5-51.1); MCH 26.3 PG (27-31); MCHC 32.1 g/dL (33-37); MCV 81.7 FL (81-99); MONO# 0.32 X1000 (0.11-0.59); MONO% 5.2 % (1.7-9.3); MPV 11.4 FL (7.4-10.4); NEUT# 2.31 X1000 (1.4-6.5); NEUT% 37.9 % (42.2-75.2); PLT 392 X1000 (130-400); RBC 4.38 XMIL (4.2-5.4); RDW 13.4 % (11.5-14.5); WBC 6.11 X1000 (4.8-10.8)
--- NOTE | 2019-10-06 09:05 | EKG Report ---
Test Performed on : 10/06/2019 01:11:29 AM Test Reason : svt Blood Pressure : / mmHG Vent. Rate : 149 BPM Atrial Rate : 322 BPM P-R Int : 000 ms QRS Dur : 094 ms QT Int : 300 ms P-R-T Axes : 000 -20 178 degrees QTc Int : 472 ms Atrial flutter. with variable AV block. Left ventricular hypertrophy with repolarization abnormality Abnormal ECG No previous ECGs available Confirmed by Will MOLINA, Fernando Beverly ([id number]) on 10/06/2019 5:31:01 PM
--- NOTE | 2019-10-06 09:21 | EKG Report ---
Test Performed on : 10/06/2019 01:13:19 AM Test Reason : FLUTTER VS SINUS TACH Blood Pressure : / mmHG Vent. Rate : 127 BPM Atrial Rate : 153 BPM P-R Int : 168 ms QRS Dur : 088 ms QT Int : 278 ms P-R-T Axes : 034 -16 136 degrees QTc Int : 404 ms Sinus tachycardia. with fusion complexes Voltage criteria for left ventricular hypertrophy Nonspecific T wave abnormality Abnormal ECG When compared with ECG of 06-OCT-2019 01:12, (Unconfirmed) fusion complexes are now present ST no longer elevated in Inferior leads Confirmed by Will MOLINA, Fernando Beverly ([id number]) on 10/06/2019 5:31:08 PM
--- NOTE | 2019-10-06 09:21 | EKG Report ---
Test Performed on : 10/06/2019 01:12:21 AM Test Reason : CONFIRM RHYTHM Blood Pressure : / mmHG Vent. Rate : 160 BPM Atrial Rate : 174 BPM P-R Int : 124 ms QRS Dur : 098 ms QT Int : 270 ms P-R-T Axes : 078 -21 143 degrees QTc Int : 440 ms Sinus tachycardia. Left ventricular hypertrophy with repolarization abnormality Nonspecific ST abnormality Abnormal ECG When compared with ECG of 06-OCT-2019 01:11, (Unconfirmed) Sinus rhythm. has replaced Atrial flutter. ST elevation now present in Inferior leads Non-specific change in ST segment in Anterior leads Confirmed by Will MOLINA, Fernando Beverly ([id number]) on 10/06/2019 5:31:05 PM
[2019-10-06 09:54] LABS: AGAP 13; BUN 15 mg/dL (8-22); CALCIUM 9.6 mg/dL (8.8-10.2); CHLORIDE 96 mmol/L (98-107); COSMO 278; CREATININE 0.7 mg/dL (0.5-0.9); ESTIMATED GFR > 60; GLUCOSE 161 mg/dL (70-104); POTASSIUM 3.6 mmol/L (3.5-5.1); SODIUM 137 mmol/L (136-145); TCO2 28 mmol/L (25-35)
[2019-10-06] MEDS: LASIX IV SCH ×3 (11:11→20:59)
[2019-10-06] MEDS: NORCO-5 PO PRN (16:33)
--- NOTE | 2019-10-06 18:21 | PROGRESS NOTE ---
DATE: 10/06/2019 SUBJECTIVE: I have seen and examined Ms. Jules today. She refers to be feeling a lot better. She still has some swelling, mild, in the lower extremity and the upper extremity. She said her breathing, however, is significantly improved. OBJECTIVE: Vital signs: Blood pressure 144/71, pulse of 89, respiration is 19, temperature is 98.6 degrees. General: Ms. Jules is a 44-year-old female. She is in bed, no distress. HEENT: Mucosa is pink and moist. Anicteric and acyanotic. Neck: Supple. I did not see any JVD. Chest: Good air entry bilaterally. A few crackles in the posterior lung macdonald. Cardiovascular: Regular rate and rhythm with occasional extrasystolic beat. GI: Abdomen is soft. Extremities: Trace pedal edema. There is also trace pedal edema in the upper extremity. ADMEASURER: Patient is awake, alert, and oriented. LABORATORY DATA: Has been reviewed. There is mild normocytic anemia. Chemistry is also reviewed which is unremarkable. Glucose was 161 this morning. ASSESSMENT: 1. Respiratory distress on presentation, secondary to pulmonary edema with a pleural effusion. 2. Acute on chronic diastolic heart failure. Ejection fraction on previous echocardiogram is said to have been 50 to 55 percent. This was done on 08/07/2019. 3. New onset atrial fibrillation with rapid ventricular response. The patient is current spontaneously converted to sinus with premature ventricular contractions. She was on drip, so we are going to switch this to p.o. Cardizem and titrate accordingly. 4. Hypertensive emergency/urgency. On admission, blood pressure systolic was 212. This has progressively gotten better. We are going to continue to titrate antihypertensive medications. 5. Uncontrolled diabetes mellitus. Presenting A1c of 9.5. Patient is on insulin regimen. In general, I think Ms. Jules's breathing is a lot better. Her blood pressure is also better controlled. Atrial fibrillation has spontaneously converted. I have discontinued the amlodipine since we are using diltiazem to control the heart rate. I have added hydralazine for a better blood pressure control. Patient is already on Coreg and lisinopril. We will also get Cardiology to evaluate her for the new onset of atrial fibrillation. cc: James Hightower MD
[2019-10-06] MEDS: CARDIZEM PO SCH (20:32)
[2019-10-06] MEDS: APRESOLINE PO SCH (20:32)
[2019-10-07] MEDS: CARDIZEM PO SCH ×2 (01:47→08:55)
[2019-10-07] MEDS: LOVENOX SUBQ SCH ×2 (02:51→08:56)
[2019-10-07 06:02] LABS: BASO# 0.01 X1000 (0.0-0.2); BASO% 0.2 % (0.0-0.8); EOS# 0.06 X1000 (0.0-0.7); EOS% 1.5 % (0.0-10.0); HEMATOCRIT 34.6 % (37.0-47.0); HEMOGLOBIN 10.8 g/dL (12.0-16.0); LYMPH# 1.83 X1000 (1.2-3.4); LYMPH% 45.4 % (20.5-51.1); MCH 25.7 PG (27-31); MCHC 31.2 g/dL (33-37); MCV 82.2 FL (81-99); MONO# 0.29 X1000 (0.11-0.59); MONO% 7.2 % (1.7-9.3); MPV 11.9 FL (7.4-10.4); NEUT# 1.84 X1000 (1.4-6.5); NEUT% 45.7 % (42.2-75.2); PLT 332 X1000 (130-400); RBC 4.21 XMIL (4.2-5.4); RDW 13.2 % (11.5-14.5); WBC 4.03 X1000 (4.8-10.8)
[2019-10-07] MEDS: PRILOSEC PO SCH (06:18)
[2019-10-07] MEDS: APRESOLINE PO SCH (06:18)
[2019-10-07] MEDS: HUMALOG SUBQ SCH (06:18)
[2019-10-07 06:45] LABS: AGAP 13; BUN 17 mg/dL (8-22); CHLORIDE 92 mmol/L (98-107); COSMO 279; CREATININE 0.8 mg/dL (0.5-0.9); GLUCOSE 292 mg/dL (70-104); POTASSIUM 4.2 mmol/L (3.5-5.1); SODIUM 133 mmol/L (136-145); TCO2 28 mmol/L (25-35)
[2019-10-07 07:46] VITALS: BP 147/71
[2019-10-07] MEDS: COREG PO SCH (08:55)
[2019-10-07] MEDS: PRINIVIL PO SCH (08:55)
[2019-10-07] MEDS: LASIX IV SCH (08:56)
[2019-10-07] MEDS ORDERED: LANTUS INSULIN SUBQ SCH (09:00)
[2019-10-07] MEDS: NORCO-5 PO PRN (09:11)
--- NOTE | 2019-10-07 13:51 | DISCHARGE SUMMARY ---
ADMISSION DATE: 10/04/2019 DISCHARGE DATE: 10/07/2019 PRIMARY CARE PHYSICIAN: Listed as none. ADMISSION DIAGNOSES: 1. Acute diastolic congestive heart failure. 2. Hypertension. 3. Diabetes. 4. Elevated D-dimer. 5. Elevated alkaline phosphatase level. 6. Tobacco use history. DISCHARGE DIAGNOSES: 1. Respiratory distress on presentation secondary to pulmonary edema with a pleural effusion. 2. Acute on chronic diastolic congestive heart failure. 3. New onset atrial fibrillation with rapid ventricular response, spontaneously converting to sinus with premature ventricular contraction. 4. Hypertensive emergenc/ urgency, improved, now with just hypertension. 5. Uncontrolled diabetes. 6. KIERSTEN secondary to cardiorenal syndrome SUMMARY OF FINDINGS: This is a 44-year-old female who presented to the hospital with shortness of breath that had been going on for 2 weeks and progressively worsened, had associated orthopnea and leg swelling. Had not been compliant with her diuretics. Had a history of congestive heart failure, hypertension and diabetes, was found not to be compliant with medications. Her proBNP was 4842. Chest x-ray showed cardiomegaly and pulmonary edema. She was admitted. We did a pulmonary arteriogram on arrival that showed no evidence of pulmonary embolism and mild pulmonary edema at the bases and a small right effusion. We did an abdominal ultrasound on 10/05/2019 that showed trace fluid tracking around the liver and essentially unremarkable abdominal ultrasound otherwise. She had a new onset atrial fibrillation with RVR on 10/06/2019, spontaneously converted to sinus with premature ventricular contractions. Was initially placed on a Cardizem drip, now switched to p.o. Cardizem. Blood pressures have improved. When she arrived, her systolic was in the 212's, now she is down today to 147/71, has diuresed well and now felt that she can safely be discharged home. DISCHARGE MEDICATIONS: 1. Eliquis 5 mg p.o. b.i.d., #120 with no refills. 2. Lipitor 40 mg p.o. at bedtime, #120 with no refills. 3. Coreg 3.125 mg p.o. q.12, #120 with no refills. 4. Cardizem CD 120 mg p.o. daily, #120 with no refills. 5. Hydralazine 25 mg p.o. q.8 hours, #120 with no refills. 6. Humulin 70/30, 20 units subcutaneous b.i.d., #1 insulin pen with 3 refills. 7. Lisinopril 10 mg p.o. b.i.d., #120 with no refills. 8. Spironolactone 25 mg p.o. daily, #120 with no refills. FOLLOW-UP: She will need to follow up with the appraiser auditor on 10/28/2019 at 10 a.m. She also needs to obtain a primary care physician and we can give her the physician referral line to obtain that. All discharge instructions have been reviewed with the patient and she verbalized understanding. A 35 minute discharge. Dictated by ILEANA Christian for James Hightower MD cc: ILEANA Christian MD I have seen and examined Ms. Jules today. is clinically stable stable. She is been discharged to home to continue medical care. I agree with the above discharge summary. All discharge instructions discussed with her I have reviewed, reconciled and discussed her home medication with her. CARLITA ALLISON
== END 2019-10-07 11:27 | disposition home or self-care (01) | DRG 291 ==
LOC: ED 19:49 → 3N 19:50 → SUATTDRO 19:50 → 2N 10-06 02:26
PROVIDERS: ATTEND Internal Medicine